=== PATIENT | female | born 1955 | race Caucasian/White ===

== ENCOUNTER → 2019-02-09 07:36 | Outpatient (CLI) | payer OTHER ==
[~2019-02-09] VITALS: Ht 170.2 cm; Wt 37.3 kg
[~2019-02-09 07:36] MED LIST: ARAVA10 MG PO; COZAAR25 MG PO; CYCLOBENZAPRINE10 MG PO; CYMBALTA60 MG PO; FOLIC ACID1 MG PO; GLUCOPHAGE500 MG PO; HYDROCHLOROTHIA25 MG PO; HYDROCODONE-A1 UDTA2 PO; HYDROXYCHLOROQUINE PO; KLOR-CON 1010 MEQ PO; LOVASTATIN20 MG PO; MAG 6464 MG PO; MEDROL4 MG PO; MERIBIN5 MG PO; NEURONTIN 300300 MG; PLAVIX75 MG PO; SINGULAIR10 MG PO; TOPAMAX100 MG PO; ULTRAM50 MG PO; VALIUM10 MG PO
[2019-02-09 08:07] LABS: APTT 26.4 SECONDS (22.8-39.4); INR 0.93 (0.85-1.17)
[2019-02-09 08:10] LABS: EOSINOPHILS 2.4 % (0-7); HEMATOCRIT 43.5 % (36.0-48.0); HEMOGLOBIN 14.8 g/dL (12-16); IMMATURE GRANULOCYTES 0.1 % (0-5); LYMPHOCYTES 42.1 % (15-50); MCH 33.7 pg (26.0-34.0); MCV 99.1 fL (80.0-100.0); MEAN PLATELET VOLUME 10.6 fL (7.4-10.4); MONOCYTES 9.3 % (2-11); NEUTROPHILS 45.1 % (40-80); PLATELET COUNT 241 10x3/uL (130-400); RBC 4.39 10x6/uL (4.00-5.40); RDW 12.9 % (11.5-14.5)
[2019-02-09 08:11] LABS: ALBUMIN 3.9 g/dL (3.4-5.0); ANION GAP 10.7 mmol/L (8-16); BILIRUBIN - DIRECT 0.12 mg/dL (0.00-0.30); BILIRUBIN - INDIRECT 0.35 mg/dL (0.00-1.00); BILIRUBIN - TOTAL 0.47 mg/dL (0.2-1.3); CALCIUM 9.2 mg/dL (8.5-10.1); CARBON DIOXIDE 29.6 mmol/L (21.0-32.0); CREATININE - SERUM 1.1 mg/dL (0.6-1.3); POTASSIUM - SERUM 3.3 mmol/L (3.5-5.1); PROTEIN - SERUM 7.5 g/dL (6.4-8.2)
[2019-02-09 09:15] VITALS: Ht 170.2 cm; Wt 37.3 kg
--- NOTE | 2019-02-09 11:14 | NUR ---
1108 SEE POST PROCEDURE CHECKLIST FOR VITAL SIGN TRENDS. SPOUSE AT SIDE. ROUNDS BY TEODORO LEBLANC RN.
--- NOTE | 2019-02-09 11:22 | NUR ---
1120 SITE WITHOUT BLEEDING NOR HEMATOMA, PLAYING ON PHONE, SOFT ADA DIET ORDERED.
== END | disposition home or self-care (01) ==
LOC: D.SP 07:36 → D.LAB 09:45 → D.CT 10:00
PROVIDERS: Radiology Diagnostic Radiology; ATTEND Internal Medicine Gastroenterology
DX: R94.5 Abnormal results of liver function studies (principal); Z01.812 Encounter for preprocedural laboratory examination

== ENCOUNTER → 2019-02-11 10:54 | Outpatient (CLI) | payer OTHER ==
[2019-02-09 09:15] VITALS: BMI 12.8
[2019-02-11 11:53] LABS: ALBUMIN 3.7 g/dL (3.4-5.0); ANION GAP 11.3 mmol/L (8-16); BILIRUBIN - TOTAL 0.43 mg/dL (0.2-1.3); CALCIUM 9.2 mg/dL (8.5-10.1); CARBON DIOXIDE 27.4 mmol/L (21.0-32.0); POTASSIUM - SERUM 3.7 mmol/L (3.5-5.1); PROTEIN - SERUM 7.1 g/dL (6.4-8.2)
== END | disposition home or self-care (01) ==
LOC: D.LAB 10:54
PROVIDERS: ATTEND Internal Medicine Gastroenterology
DX: K83.8 Other specified diseases of biliary tract (principal)

== ENCOUNTER 2019-03-02 06:00 | Day surgery (SDC) | payer OTHER ==
[~2019-03-02] VITALS: Ht 170.2 cm; Wt 37.6 kg
[2019-03-02 06:27] LABS: HEMATOCRIT 41.9 % (36.0-48.0); HEMOGLOBIN 14.5 g/dL (12-16); MCHC 34.6 g/dL (31.0-37.0); MCV 98.1 fL (80.0-100.0); MEAN PLATELET VOLUME 10.4 fL (7.4-10.4); RBC 4.27 10x6/uL (4.00-5.40); WBC 8.1 10x3/uL (4.8-10.8)
[2019-03-02 06:37] LABS: ANION GAP 12.5 mmol/L (8-16); CALCIUM 9.3 mg/dL (8.5-10.1); CARBON DIOXIDE 29.1 mmol/L (21.0-32.0); CREATININE - SERUM 1.6 mg/dL (0.6-1.3); POTASSIUM - SERUM 3.6 mmol/L (3.5-5.1)
[2019-03-02] MEDS ORDERED: ETANERCEPT (07:04)
[2019-03-02] MEDS ORDERED: ALBUTEROL SULF8.5 GM (07:05)
[2019-03-02] MEDS ORDERED: SYMBICORT 16010.2 GM INH (07:06)
[2019-03-02 07:11] VITALS: BP 125/71; Ht 170.2 cm; Wt 37.6 kg
--- NOTE | 2019-03-02 09:37 | NUR ---
IV DC'D WITH TIP INTACT, MODIFIED BARIUM SWALLOW APPOINTMENT PROVIDED 03/07/19 @ 1300. DISCHARGE INSTRUCTIONS GIVEN.
--- NOTE | 2019-03-02 09:46 | OP ---
PATIENT NAME: NIKHIL ROLDAN MEDICAL RECORD: [id number] LOCATION:[facility] ADMISSION DATE: SURGEON: ISAAC WELLS DO DATE OF OPERATION: 03/02/2019 PROCEDURE: EGD with biopsies. INDICATIONS FOR PROCEDURE: Dysphagia, heartburn, abnormal weight loss, celiac disease per patient. SCOPE: Olympus video gastroscope. MEDICATIONS: Propofol 130 mg IV per anesthesia. ESTIMATED BLOOD LOSS: Minimal. COMPLICATIONS: None. FINDINGS: Informed consent was given. The patient was made comfortable with the above medication. After reaching an adequate level of sedation by slow IV push, the patient was placed on her left side. The endoscope was advanced under direct visualization through the mouth to the second portion of the duodenum with ease. The entire esophagus appeared normal. Random cold forceps biopsies were taken from the midesophagus to rule out presence of eosinophilic esophagitis in light of her dysphagia. Of note, her symptoms sound more like oropharyngeal dysphagia involving the throat area. At the GE junction, there were mild changes consistent with LA class A reflux-induced esophagitis. The endoscope was advanced beyond the GE junction into the stomach and retroflexed to view the cardia and fundus, which appeared normal. Throughout the distal body of the stomach as well as the antrum and prepyloric regions, there was some erythema and granularity noted. Appearances were consistent with mild gastritis. Random cold forceps biopsies were taken to submit for histopathology and to rule out the presence of H. pylori. The endoscope was advanced beyond the pylorus into the duodenum, which appeared normal down to the second portion. The endoscope was withdrawn from the patient. The patient tolerated the procedure well and there were no complications. IMPRESSION: 1. LA class A reflux-induced esophagitis. 2. Mild gastritis. PLAN AND RECOMMENDATIONS: 1. Discharge home when recovery parameters are met. 2. Follow up biopsy specimen results. 3. GERD diet and reflux precautions as well as a gluten-free diet based on her history of celiac disease. 4. We will provide a prescription for omeprazole 40 mg daily times 8 weeks. After that time, the patient can use Zantac or Pepcid as needed for heartburn symptoms. 5. We will refer the patient for a modified barium swallow with speech therapy regarding her oropharyngeal dysphagia. 6. Follow up in GI clinic as scheduled. TRANSINT:[id number] Voice Confirmation ID: [id number] DOCUMENT ID: [id number] OPERATIVE REPORT [id number] NIKHIL ROLDAN,ISAAC Harp DO at 0946 CC: [id number] DICTATION DATE: 03/02/19824 BUSINESS DATA ANALYST: 03/02/19 0837 [facility] 03/02/19 [place] [id number] [place] [id number]
== END 2019-03-02 09:30 | disposition home or self-care (01) ==
LOC: D.OPS 06:00
PROVIDERS: Anesthesiology; ATTEND Internal Medicine Gastroenterology
DX: K21.0 Gastro-esophageal reflux disease with esophagitis (principal); K29.70 Gastritis, unspecified, without bleeding; K90.0 Celiac disease

== ENCOUNTER → 2019-03-07 12:26 | Outpatient (CLI) | payer OTHER ==
[2019-03-02 07:11] VITALS: BMI 13.0
[~2019-03-07 12:26] MED LIST changes: +ALBUTEROL SULF8.5 GM; +ETANERCEPT; +SYMBICORT 16010.2 GM INH
== END | disposition home or self-care (01) ==
LOC: D.ST 12:26
PROVIDERS: ATTEND Internal Medicine Gastroenterology
DX: R13.11 Dysphagia, oral phase (principal)